=== PATIENT | female | born 1955 | race Two or more races ===

== ENCOUNTER 2017-04-26 14:00 | Outpatient (CLI) | payer OTHER ==
[~2017-04-26 14:00] MED LIST: ATIVAN0.5 MG; AVAPRO300 MG; CALCITRIOL0.5 MCG; COREG CR20 MG; GLUCOTROL5 MG/BOTTL; LASIX40 MG; LIPITOR40 MG; NABUMETONE750 MG; NORFLEX100 MG; NORVASC10 MG; PRILOSEC20 MG; PRISTIQ; SAVELLA; TOPAMAX25 M1; TORADOL60 MG; ULTRAM ER100 MG; VITAMIN D400 UNI2; ZANTAC 2525 MG; [UNRECOGNIZED DRUG - OTHER]
== END 2017-04-26 14:11 | disposition home or self-care (01) ==
LOC: RAD 501 14:00
DX: J32.8 Other chronic sinusitis (principal)

== ENCOUNTER → 2018-05-07 | Emergency (ER) | payer OTHER ==
[~2018-05-07] VITALS: Ht 170.2 cm; Wt 118.4 kg
[~2018-05-07] MED LIST changes: +CARDURA XL4 MG PO; +CYMBALTA60 MG PO; +ZETIA10 MG PO
== END | disposition home or self-care (01) ==
LOC: ER 12:46
DX: N20.1 Calculus of ureter (principal); R10.31 Right lower quadrant pain

== ENCOUNTER 2021-03-01 06:19 | Outpatient (CLI) | payer OTHER | END 2021-03-01 06:20 | disposition home or self-care (01) | LOC: LAB 06:19 | PROVIDERS: ATTEND Internal Medicine Hematology & Oncology | DX: N39.0 Urinary tract infection, site not specified (principal); B96.1 Klebsiella pneumoniae [K. pneumoniae] as the cause of diseases classified elsewhere; D50.0 Iron deficiency anemia secondary to blood loss (chronic); E11.69 Type 2 diabetes mellitus with other specified complication; D50.8 Other iron deficiency anemias; R79.89 Other specified abnormal findings of blood chemistry; R74.02 Elevation of levels of lactic acid dehydrogenase [LDH]; K76.89 Other specified diseases of liver; D51.1 Vitamin B12 deficiency anemia due to selective vitamin B12 malabsorption with proteinuria; D51.0 Vitamin B12 deficiency anemia due to intrinsic factor deficiency; E03.8 Other specified hypothyroidism; E06.3 Autoimmune thyroiditis; C56.9 Malignant neoplasm of unspecified ovary; R97.0 Elevated carcinoembryonic antigen [CEA]; R97.8 Other abnormal tumor markers; R97.1 Elevated cancer antigen 125 [CA 125]; I10 Essential (primary) hypertension; D72.828 Other elevated white blood cell count; G47.33 Obstructive sleep apnea (adult) (pediatric); E78.2 Mixed hyperlipidemia; E11.65 Type 2 diabetes mellitus with hyperglycemia; E04.8 Other specified nontoxic goiter; D53.8 Other specified nutritional anemias; K76.1 Chronic passive congestion of liver ==

== ENCOUNTER 2021-03-08 12:59 | Outpatient (CLI) | payer OTHER | END 2021-03-08 15:00 | disposition home or self-care (01) | LOC: LAB 12:59 | PROVIDERS: ATTEND Internal Medicine Endocrinology, Diabetes & Metabolism | DX: I11.0 Hypertensive heart disease with heart failure (principal); E11.65 Type 2 diabetes mellitus with hyperglycemia; E78.2 Mixed hyperlipidemia; D53.8 Other specified nutritional anemias; N39.0 Urinary tract infection, site not specified; E04.8 Other specified nontoxic goiter; K76.1 Chronic passive congestion of liver; N28.89 Other specified disorders of kidney and ureter; N36.2 Urethral caruncle ==

== ENCOUNTER 2022-09-25 13:47 | Outpatient (CLI) | payer OTHER | END 2022-09-25 13:55 | disposition home or self-care (01) | LOC: RAD 13:47 | PROVIDERS: ATTEND Internal Medicine | DX: M54.2 Cervicalgia (principal); M54.17 Radiculopathy, lumbosacral region ==